=== PATIENT | female | born 1955 | race Caucasian/White ===

== ENCOUNTER 2023-07-01 11:14 | Emergency (ER) | payer MEDICARE, SELFPAY ==
[2023-07-01 11:42] VITALS: BP 135/77; PULSE 65; RESP 18; TEMP 36.3; O2SAT 90; BMI 20.4
[2023-07-01 13:30] VITALS: BP 174/70; PULSE 84; RESP 18; O2SAT 91
--- NOTE | 2023-07-01 13:57 | ED.GENADULT ---
HPI - General Adult General Chief complaint: Shortness of Breath/Dyspnea Stated complaint: trouble breathing Time Seen by Provider: 07/01/23 13:45 History of Present Illness HPI narrative: Pt on nebs and oxygen at home. Took neb right before coming. Hx of needing steroids in the past for breathing problems. Feels like she cannot catch her breath. On 2L at home when her oxygen is below 95% per her own report. At home oxygen roughly 94% 67-year-old woman presenting to the emergency department with recently increasing shortness of breath. Does have a history of COPD and uses oxygen at home. Will use about 2 L nasal cannula oxygen as she dipped below 95%. She has been measuring around 94%. She did use a nebulizer. She chest feels like she is having increasing trouble catching her breath now. History of improving with oral steroids. No fever. No significant cough. Related Data Home Medications Medication Instructions Recorded Confirmed albuterol sulfate 2.5 mg/3 mL 2.5 mg inhalation Q4H PRN 03/28/23 03/28/23 (0.083 %) solution for nebulization albuterol sulfate 90 mcg/actuation 1 - 2 puff inhalation Q4H PRN 03/28/23 03/28/23 aerosol inhaler wheezing clopidogrel 75 mg tablet 75 mg PO DAILY 03/28/23 03/28/23 loratadine 10 mg tablet 10 mg PO DAILY 03/28/23 03/28/23 losartan 50 mg tablet 50 mg PO DAILY 03/28/23 03/28/23 propranolol 80 mg tablet 80 mg PO DAILY 03/28/23 03/28/23 varenicline 0.5 mg tablet 0.5 mg PO BID 03/28/23 03/28/23 acetaminophen 325 mg capsule 325 mg PO Q6H PRN 07/01/23 07/01/23 albuterol sulfate 2.5 mg/0.5 mL 2.5 mg inhalation QID 07/01/23 07/01/23 solution for nebulization albuterol sulfate 90 mcg/actuation 1 inh inhalation QID 07/01/23 07/01/23 aerosol inhaler (Proventil HFA) clobetasol 0.05 % topical cream 1 applic topical DAILY 07/01/23 07/01/23 clopidogrel 75 mg tablet 75 mg PO DAILY 07/01/23 07/01/23 fluticasone 250 mcg-salmeterol 50 1 inh inhalation BID 07/01/23 07/01/23 mcg/dose blistr powdr for inhalation (Advair Diskus) insulin glargine subcut 07/01/23 insulin lispro 100 unit/mL 1 sliding scale dose subcut 07/01/23 07/01/23 subcutaneous pen (Admelog SoloStar USEASDIRECTD U-100 Insulin lispro) loratadine 10 mg tablet (Claritin) 10 mg PO DAILY 07/01/23 07/01/23 losartan 50 mg tablet 50 mg PO DAILY 07/01/23 07/01/23 mupirocin 2 % topical ointment 1 applic topical DAILY 07/01/23 07/01/23 propranolol 80 mg capsule,24 80 mg PO DAILY 07/01/23 07/01/23 hr,extended release (Inderal LA) tacrolimus 0.1 % topical ointment 1 applic topical DAILY 07/01/23 07/01/23 (Protopic) Previous Rx's Medication Instructions Recorded Home Oxygen #1 ea 03/31/23 doxycycline hyclate 100 mg capsule 100 mg PO BID #10 caps 03/31/23 empagliflozin 10 mg tablet 10 mg PO DAILY #30 tabs 03/31/23 (Jardiance) glipizide 5 mg tablet 5 mg PO DAILYWM #30 tabs 03/31/23 insulin glargine 100 unit/mL (3 10 unit (0.1 mL) subcut QAM #15 mL 03/31/23 mL) subcutaneous pen (Lantus Solostar U-100 Insulin) prednisone 20 mg tablet 40 mg (2 x 20 mg) PO DAILYWM #12 03/31/23 tabs ipratropium 0.5 mg-albuterol 3 mg 3 ml inhalation QID PRN #90 mL 07/01/23 (2.5 mg base)/3 mL nebulization soln prednisone 20 mg tablet 40 mg (2 x 20 mg) PO DAILY 4 days 07/01/23 #8 tabs Allergies Allergy/AdvReac Type Severity Reaction Status Date / Time amoxicillin Allergy Verified 07/01/23 14:55 clavulanic acid Allergy Verified 07/01/23 14:55 sulfamethoxazole Allergy Verified 07/01/23 14:55 [From Bactrim] trimethoprim [From Bactrim] Allergy Verified 07/01/23 14:55 chocolate flavor AdvReac Verified 07/01/23 14:55 Review of Systems Status of ROS: Reports: 6 or more systems reviewed and unremarkable except as noted in History and below PFSH [facility] Medical History Lung nodule ?R91.1 - Solitary pulmonary nodule (ICD-10) Vitamin D deficiency ?E55.9 - Vitamin D deficiency, unspecified (ICD-10) Stage 4 chronic kidney disease ?N18.4 - Chronic kidney disease, stage 4 (severe) (ICD-10) Peripheral vascular disease ?I73.9 - Peripheral vascular disease, unspecified (ICD-10) Hypertension ?I10 - Essential (primary) hypertension (ICD-10) Diabetes mellitus ?E11.9 - Type 2 diabetes mellitus without complications (ICD-10) Carbon dioxide retention ?E87.29 - Other acidosis (ICD-10) Surgical History History of tubal ligation ?Z98.51 - Tubal ligation status (ICD-10) History of bunionectomy ?Z98.890 - Other specified postprocedural states (ICD-10) H/O cervical spine surgery ?Z98.890 - Other specified postprocedural states (ICD-10) Family History Father Diabetes Cardiovascular disease Brother Diabetes Social History Narrative: Lives alone in [place]. Closest family is her son Yuan who is healthcare power of commercial attorney. Code status is full. She smokes about a pack and half of cigarettes per week. She occasionally drinks alcohol but not every week Highest level of school completed/degree received: some college, no degree Smoking Status: Current every day smoker What tobacco products do you use: cigarettes Smoking packs per day: 0.1 Smoking cigarettes per day: 2.0 How often do you have a drink containing alcohol: never AUDIT-C Alcohol total score: 0 Non-prescribed substance use: denies use Exam Narrative: Exam Narrative: Pleasant. Is not having tremendous difficulty in conversation. Mildly labored in her breathing. Diminished breath sounds though with some end-expiratory squeaks diffusely. Cranial nerves 2-12 intact. She is well-perfused peripherally. No edema. Heart in regular rate and rhythm. Const: Vital Signs, click to edit/add: Vital Signs - 24 hr 07/01/23 11:42 07/01/23 13:30 Temperature 97.3 F L Pulse Rate [Pulse Oximeter] 65 84 Respiratory Rate 18 18 [facility] 135/77 174/70 H Pulse Oximetry 90 91 Oxygen Delivery Me thod Room Air Room Air Documenting provider has reviewed patient's vital signs: yes Course Vital Signs Vital signs: Initial Vital Signs Temperature 97.3 F L 07/01/23 11:42 Temperature Source Temporal Artery Scan 07/01/23 11:42 Pulse Rate 65 07/01/23 11:42 Pulse Rhythm Regular 07/01/23 11:42 Pulse Strength 3+ Normal 07/01/23 11:42 Respiratory Rate 18 07/01/23 11:42 Blood Pressure 135/77 07/01/23 11:42 Blood Pressure Mean 96 07/01/23 11:42 Blood Pressure Position Sitting 07/01/23 11:42 Pulse Oximetry 90 07/01/23 11:42 Oxygen Delivery Method Room Air 07/01/23 11:42 Vital Signs Temperature 97.3 F L 07/01/23 11:42 Pulse Rate 65 07/01/23 11:42 Respiratory Rate 18 07/01/23 11:42 Blood Pressure 135/77 07/01/23 11:42 Pulse Oximetry 90 07/01/23 11:42 Oxygen Delivery Method Room Air 07/01/23 11:42 Temperature 97.3 F L 07/01/23 11:42 Pulse Rate 84 07/01/23 13:30 Respiratory Rate 18 07/01/23 13:30 Blood Pressure 174/70 H 07/01/23 13:30 Pulse Oximetry 93 07/01/23 14:32 Oxygen Delivery Method Room Air 07/01/23 14:32 Medical Decision Making MDM Narrative Medical decision making narrative: Would monitor for time in the emergency department. She is quite clear that this is her usual exacerbation. Differential still includes pneumonia, pneumothorax. I think it would be prudent to do a chest x-ray also with history of diabetes. Will be receiving DuoNeb and dose of prednisone. Chest x-ray reviewed by me does not appear to show any infiltrative process, no pneumothorax. Postoperative changes. Mildly hyperexpanded. With treatments as indicated above overall feels better. Feels can manage at home. Initially dipping on oximetry after nebulization, did improve. Reauscultation with better air movement admittedly some more squeaks though. On room air she stabilized on oximetry 93 -94% Discussed monitoring of blood sugars while taking prednisone. She is familiar. See patient discharge plan Discharge Plan Discharge Clinical Impression: Dyspnea, COPD exacerbation Patient Disposition: Home, Self-Care Condition: Improved Additional Instructions: Yes. Watch your blood sugars. Return for persistent and increasing shortness of breath, chest pain, associated fever. I would use the DuoNebs 3 to 4 times a day regularly over the next 3-4 days. Can use albuterol nebulization or inhaler for breakthrough if needed. Certainly anticipating you receiving more information/recommendations on the at your pulmonology appointment follow-up. I had hoped to fill your prescriptions at our [facility] in the lobby but we do not have the medications I think you need. Prescriptions: New prednisone 20 mg tablet 40 mg PO DAILY 4 Days Qty: 8 1RF ipratropium-albuterol 0.5 mg-3 mg(2.5 mg base)/3 mL solution for nebulization 3 ml inhalation QID PRNQty: 90 1RF No Action acetaminophen 325 mg capsule 325 mg PO Q6H PRN albuterol sulfate 2.5 mg/0.5 mL solution for nebulization 2.5 mg inhalation QID albuterol sulfate [Proventil HFA] 90 mcg/actuation HFA aerosol inhaler 1 inh inhalation QID clobetasol 0.05 % cream 1 applic topical DAILY clopidogrel 75 mg tablet 75 mg PO DAILY fluticasone propion-salmeterol [Advair Diskus] 250-50 mcg/dose blister with device 1 inh inhalation BID insulin lispro [Admelog SoloStar U-100 Insulin] 100 unit/mL insulin pen 1 sliding scale dose subcut USEASDIRECTD insulin glargine [Lantus Solostar U-100 Insulin] subcut loratadine [Claritin] 10 mg tablet 10 mg PO DAILY losartan 50 mg tablet 50 mg PO DAILY mupirocin 2 % ointment 1 applic topical DAILY propranolol [Inderal LA] 80 mg capsule,extended release 24hr 80 mg PO DAILY tacrolimus [Protopic] 0.1 % ointment 1 applic topical DAILY losartan 50 mg tablet 50 mg PO DAILY propranolol 80 mg tablet 80 mg PO DAILY albuterol sulfate 2.5 mg /3 mL (0.083 %) solution for nebulization 2.5 mg inhalation Q4H PRN clopidogrel 75 mg tablet 75 mg PO DAILY albuterol sulfate 90 mcg/actuation HFA aerosol inhaler 1 - 2 puff INHALATION Q4H PRN (Reason: wheezing) varenicline 0.5 mg tablet 0.5 mg PO BID loratadine 10 mg tablet 10 mg PO DAILY doxycycline hyclate 100 mg Capsule 100 mg PO BID Qty: 10 0RF prednisone 20 mg Tablet 40 mg PO DAILYWM Qty: 12 0RF Rx Instructions: take 40mg (2tabs) each am 6/2-6/3 Then take 20mg (1 tab) for five days Then take 10mg (1/2 tab) for six days glipizide 5 mg Tablet 5 mg PO DAILYWM Qty: 30 0RF Jardiance 10 mg Tablet 10 mg PO DAILY Qty: 30 0RF insulin glargine [Lantus Solostar U-100 Insulin] 100 unit/mL (3 mL) insulin pen 10 unit subcut QAM Qty: 15 0RF (DME) Home Oxygen Misc See Rx Instructions .Route Qty: 1 0RF Rx Instructions: 2L per NC with activity Follow Up/Referrals: Anastacia Condon MD [Primary Care Provider] - Stand Alone Forms: [facility] Info Instructions
--- NOTE | 2023-07-01 14:07 | XR_ITS ---
Patient: MIC CARLOS Facility:?[facility] Patient ID:?[id number] Site Patient ID:?[id number]. Site :?[id number] Study:?XRay-Chest Portable 1v-07/01/2023 2:25:17 PM Ordering Physician:Nehemiah Hankins Final Report: INDICATION : Dyspnea. COPD. TECHNIQUE: One view of the chest. COMPARISON: None available. FINDINGS: There is mild flattening of the diaphragms suggestive of COPD. No focal pulmonary opacity, pleural effusion or pneumothorax. Normal cardiomediastinal silhouette size. Three linear 6 mm metallic structures project over the midline lower neck. IMPRESSION: No acute cardiopulmonary abnormality. Dictated by Olena Carmona MD @ 07/01/2023 3:43:30 PM Signed by:?Olena Carmona MD @07/01/2023 3:43:30 PM (Electronic Signature)
--- NOTE | 2023-07-01 14:07 | CRLHL7_ITS ---
For Patients: As a result of the Cures Act, medical imaging exams and procedure reports are released immediately into your electronic medical record. You may view this report before your referring provider. If you have questions, please contact your health care provider. INDICATION : Dyspnea. COPD. TECHNIQUE: One view of the chest. COMPARISON: None available. FINDINGS: There is mild flattening of the diaphragms suggestive of COPD. No focal pulmonary opacity, pleural effusion or pneumothorax. Normal cardiomediastinal silhouette size. Three linear 6 mm metallic structures project over the midline lower neck. IMPRESSION: No acute cardiopulmonary abnormality. Dictated by Olena Carmona MD @ 07/01/2023 3:43:30 PM (Electronically Signed)
[2023-07-01] MEDS: predniSONE 20 MG TABLET 60 MG PO (14:19)
[2023-07-01] MEDS: IPRAT-ALBUT 0.5-2.5 MG/3 ML NEB 1 NEB IH (14:19)
[2023-07-01 14:32] VITALS: O2SAT 93
== END 2023-07-01 15:29 | disposition home or self-care (01) ==
PROVIDERS: Emergency Provider Family Medicine; PCP Family Medicine
DX: J44.1 Chronic obstructive pulmonary disease with (acute) exacerbation (principal); R06.00 Dyspnea, unspecified
CPT/HCPCS: 71045; 94640; 99283; 99284; J7512